=== PATIENT | female | born 1970 | race Two or more races ===

== ENCOUNTER 2025-09-26 20:10 | Emergency (ER) | payer OTHER ==
[~2025-09-26] VITALS: Ht 157.5 cm; Wt 61.2 kg
[2025-09-26] MEDS ORDERED: OFLO5DRO5 LEFT EAR (22:34)
[2025-09-26] MEDS ORDERED: IBUP-1490 PO (22:34)
[2025-09-26 22:55] VITALS: BP 126/85; TEMP 97.9; O2SAT 95
== END 2025-09-26 22:56 | disposition home or self-care (01) ==
LOC: ER 20:16
DX: H60.92 Unspecified otitis externa, left ear (principal); Z60.2 Problems related to living alone

== ENCOUNTER 2025-10-06 12:16 | Emergency (ER) | payer OTHER ==
[~2025-10-06] VITALS: Ht 152.4 cm; Wt 61.2 kg
[~2025-10-06 12:16] MED LIST: IBUP-1490 PO; OFLO5DRO5 LEFT EAR
[2025-10-06 12:21] VITALS: BP 124/61; TEMP 98
[2025-10-06] MEDS ORDERED: AMOX-430 PO (12:55)
[2025-10-06] MEDS ORDERED: OFLO5DRO5 LEFT EAR (12:55)
[2025-10-06] MEDS ORDERED: AMOX/CLAVULANATE 875 MG TABLET ONE (13:07)
[2025-10-06 13:17] VITALS: O2SAT 99
[2025-10-06] MEDS: AMOX/CLAVULANATE 875 MG TABLET PO ONE (13:17)
== END 2025-10-06 13:19 | disposition home or self-care (01) ==
LOC: ER 12:18
DX: H66.92 Otitis media, unspecified, left ear (principal); Z91.013 Allergy to seafood